=== PATIENT | male | born 1965 | race Caucasian/White ===

== ENCOUNTER 2023-03-08 09:33 | Emergency (ER) | payer OTHER, SELFPAY ==
[2023-03-08 09:38] VITALS: BP 154/78; PULSE 84; RESP 18; TEMP 36.9; O2SAT 97
--- NOTE | 2023-03-08 09:42 | ED.GENADUL_ITS ---
Discharge Plan Disposition Patient Disposition: Home Discharge Details Clinical Impression: Inguinal lymphadenopathy, Cellulitis of right foot Primary Care Provider: Unknown,Unknown ED Provider: Parag Barry Home Meds and New Rx's Prescriptions: New doxycycline hyclate 100 mg capsule 100 mg PO BID 10 Days Qty: 20 0RF Continued lisinopril 10 mg tablet 10 mg PO DAILY levothyroxine [Euthyrox] 125 mcg tablet 125 mcg PO DAILY omeprazole 20 mg tablet,delayed release (DR/EC) 20 mg PO DAILY multivitamin [Daily Multi-Vitamin] Tablet 1 tab PO DAILY Discharge Instructions Instructions: Doxycycline (By mouth), Cellulitis (ED) Additional Instructions: You were seen in the emergency department for your right foot redness, I think this is a simple infection that we can treat with the antibiotic doxycycline which was sent to your pharmacy. The nodule in your right groin is a lymph node. This may be reactive to your foot infection but you should receive follow-up with us if it does not resolve quickly with your primary care provider. Please return to the ED for any severe increase in leg pain, fever, unilateral leg swelling. Discharge Data Discharge Date/Time-TO BE ENTERED AT DEPARTURE: 03/08/23 13:25 Medical Decision Making This dictation utilizes [id number] dictation software and may contain un edited grammatical errors. 57 y/o M presents to ED today with a chief complaint of red spot on his foot, painful nodular area in his groin. Onset and characteristics include noted yesterday, no unilateral leg swelling, no fever/red streaking. Patients' medical history: noncontributory. Family and social history: noncontributory. Pertinent exam findings / vital signs include SKIN: Warm, pink, dry, intact, small 0.5cm erythematous macular area on dorsum of R foot, focal to the dorsalis pedis pulse area, no fluctuance, no lymphadenitis, no purlent drainage, no exquisite tenderness to light touch, no skin changes of calf, Honorio's negative, no unilateral leg swelling. small round mobile nodule in groin area consistent with inguinal lymphadenopathy, no testicular pain. Differential / pathologies of concern include DVT, cellulitis, lymphadenopathy, superficial thrombophlebitis, unlikely gout- no exquisite TTP with light-touch Diagnostic studies of: -CBC, CMP, CRP/ESR, D-dimer, US R LE DVT Study. -CBC benign -D-dimer neg, but patient highly concerned, US ordered for definitive ruleout -US R LE DVT Study negative, nodule is consistent with lymph node Interventions of: -outpatient Rx for antibiotics for mild cellulitis. ED Course/Assessment/Plan: 57-year-old male seen with a small red spot on his foot consistent with a mild cellulitis, has no physical exam findings consistent with DVT and ultrasound study is negative, I counseled the patient on monitoring the area, it was traced before he left, he was started on doxycycline for cellulitis, provided reassurance that his node in the groin is possibly reactive to cellulitis and consistent with just a swollen tender lymph node and not any clot pathology. Findings not consistent with gout, DVT, superficial thrombophlebitis, abscess - likely cellulitis. Disposition of Cellulitis of Right Foot, Inguinal Lymphadenopathy. Patient verbalized understanding of the plan and return to ED criteria and engaged in shared decision making. Medical Records Medical records reviewed: Yes I reviewed the patient's medical records. Imaging Data Radiologic Study: Imaging: Ultrasound Radiologist's impression: EXAM: US LOWER EXTREMITY VENOUS RT CLINICAL HISTORY: nodular swelling in groin, pain, skin changes dist TECHNIQUE: Right lower extremity venous ultrasound performed using grayscale, color-flow, and spectral Doppler analysis. COMPARISON: No exams were available for comparison FINDINGS: The right common femoral, femoral and popliteal veins demonstrate normal compressibility, augmentation, and color Doppler. The posterior tibial and peroneal veins are patent. The saphenofemoral junction is unremarkable. There is no evidence of a Snider cyst. The soft tissues are unremarkable. Sonographically benign-appearing lymph nodes are seen in the right inguinal region. The largest measures 1.5 x 0.5 x 1.0 cm. IMPRESSION: 1. No evidence of a right lower extremity DVT. 2. Sonographically benign-appearing lymph nodes in the right inguinal region. The largest measures 1.5 x 0.5 x 1.0 cm. Lab Data Lab results reviewed: Yes I reviewed the patient's lab results. Labs: Laboratory Tests Range/Units 03/08/23 10:34 WBC (4.4-10.8) 10^3/uL 9.25 RBC (4.36-5.78) 10^6/uL 4.72 Hgb (13.5-17.5) g/dL 14.5 Hct (40.0-50.0) % 41.6 MCV (80-95) fL 88 MCH (27.0-33.0) pg 30.7 MCHC (32.0-36.0) % 34.9 RDW (11.8-14.1) % 12.3 Plt Count (130-400) 10^3/uL 215 MPV (8.0-11.0) fL 9.7 Immature Gran % 0.3 Neutrophils % 57.4 Lymphocytes % 31.6 Monocytes % 8.6 Eosinophils % 1.7 Basophils % 0.4 Nucleated RBC % (0.0-0.3) % 0.0 Absolute Neutrophils (1.2-6.7) 10^3/uL 5.30 Absolute Lymphocytes (1.2-3.4) 10^3/uL 2.92 Absolute Monocytes (0.1-0.8) 10^3/uL 0.80 Absolute Eosinophils (0.0-0.7) 10^3/uL 0.16 Absolute Basophils (0.0-0.2) 10^3/uL 0.04 ESR (0-20) mm/hr 8 D-Dimer (<500) ng/mlFEU 235 Sodium (136-145) mmol/L 140 Potassium (3.5-5.1) mmol/L 3.6 Chloride (98-107) mmol/L 106 Carbon Dioxide (21.0-32.0) mmol/L 25.3 Anion Gap (3-11) mmol/L 8.7 BUN (7-18) mg/dL 15 Creatinine (0.70-1.30) mg/dL 1.0 Est GFR (CKD-EPI 2020) (mL/min/1.73m2) 88.33 Glucose (74-106) mg/dL 124 H Calcium (8.5-10.1) mg/dL 8.7 Total Bilirubin (0.2-1.0) mg/dL 0.8 AST (15-37) U/L 11 L ALT (16-63) U/L 24 Alkaline Phosphatase (46-116) U/L 34 L C-Reactive Protein (0.0-0.3) mg/dL 2.83 H Total Protein (6.4-8.2) g/dL 7.0 Albumin (3.4-5.0) g/dL 3.5 HPI General Date/Time Provider Initiated Documentation: 03/08/23 09:41 . HPI Narrative: 57 year-old male presents to ED today by POV/ambulating with his with a chief complaint of red spot noted on dorsum of foot, and a painful nodule in his R groin area with onset starting yesterday, patient is concerned for possible blood clot. Quality described as painfully tender round nodular swelling in his groin and a mild red spot on his foot, no radiation to fever, drainage of pus, red streaking up the leg, dysuria, abdominal pain, unilateral leg swelling. Severity is described as 5-6/10. Palliating factors include nothing specific attempted. Provoking factors include nothing specific. Patient not anticoagulated. Related Data Home Medications Medication Instructions Recorded Confirmed doxycycline hyclate 100 mg capsule 100 mg PO BID cellulitis 10 days 03/08/23 #20 caps levothyroxine 125 mcg tablet 125 mcg PO DAILY 03/08/23 03/08/23 (Euthyrox) lisinopril 10 mg tablet 10 mg PO DAILY 03/08/23 03/08/23 multivitamin (Daily Multi-Vitamin 1 tab PO DAILY 03/08/23 03/08/23 tablet) omeprazole 20 mg tablet,delayed 20 mg PO DAILY 03/08/23 03/08/23 release Previous Rx's Medication Instructions Recorded doxycycline hyclate 100 mg capsule 100 mg PO BID cellulitis 10 days 03/08/23 #20 caps Allergies Allergy/AdvReac Type Severity Reaction Status Date / Time penicillin V Allergy Severe Anaphylaxis Unverified 03/08/23 09:42 General Stated Complaint: Cellulitis JOSÉ MIGUEL: 3 Review of Systems All systems reviewed & are unremarkable except as noted in HPI and below PFSH All Active Problems (Updated 03/08/23 @ 13:14 by BRISA Whittaker) Cellulitis of right foot (Acute) Inguinal lymphadenopathy (Acute) Social History Smoking/Tobacco Use Status: Never Smoking risk assessment performed?: Yes Alcohol Intake: current Alcohol Intake frequency: a few times a week Drug use: Never Substance use type: does not use Housing: house Exam Narrative Exam Narrative: GENERAL APPEARANCE: Well-nourished, non-toxic, awake and alert, atraumatic, no acute distress. SKIN: Warm, pink, dry, intact, small 0.5cm erythematous macular area on dorsum of R foot, focal to the dorsalis pedis pulse area, no fluctuance, no lymphadenitis, no purlent drainage, no exquisite tenderness to light touch, no s kin changes of calf, Honorio's negative, no unilateral leg swelling HEAD: Normocephalic, atraumatic, normal hair distribution for gender/age. EYES: Pupils PERRLA, EOMs intact without nystagmus, normal conjunctiva, no exudates on lids/lashes. ENT: Nares patent, no circumoral cyanosis, no facial swelling NECK: Supple, trachea midline, painless cervical ROM. LUNGS/CHEST: Non-labored respirations, normal A/P diameter, symmetrical expansion, no chest wall deformity HEART (CV/PV): Regular rate and rhythm without murmur, no peripheral edema, no JVD. ABDOMEN: Soft, non-distended, no guarding, no tenderness. MSK: Normal ROM, no swelling/deformity to bilateral UEs or LEs, moving all extremities without weakness, no cyanosis, spine midline without tenderness, normal curvature. NEURO: Mental Status AAOx4 - alert to person, place, time, events No facial droop, no forehead involvement. Motor: No focal weakness - strength 5/5 in bilateral UEs and L Es, proximal and distal, symmetric. Sensory: sensation intact to light touch globally. Gait normal: patient ambulated without ataxia into ED room. PSYCH: euthymic, cooperative, pleasant, appropriate speech Course Vital Signs Vital signs: Vital Signs Temperature 36.9 C 03/08/23 09:38 Pulse 84 03/08/23 09:38 Respiratory Rate 18 03/08/23 09:38 Blood Pressure 154/78 H 03/08/23 09:38 Pulse Oximetry 97 03/08/23 09:38 Temperature 36.9 C 03/08/23 09:38 Temperature Source Temporal Artery Scan 03/08/23 09:38 Pulse 84 03/08/23 09:38 Respiratory Rate 18 03/08/23 09:38 Blood Pressure 154/78 H 03/08/23 09:38 Blood Pressure Position Sitting 03/08/23 09:38 Pulse Oximetry 97 03/08/23 09:38 Oxygen Delivery Method Room Air 03/08/23 09:38 Oxygen Flow Rate 0 03/08/23 09:38
[2023-03-08 10:42] LABS: ESR 8 mm/hr (0-20)
[2023-03-08 10:43] LABS: Abs Immature Grans 0.03 10^3/uL (0.0-0.06); Absolute Basophil Count 0.04 10^3/uL (0.0-0.2); Absolute Eosinophil Count 0.16 10^3/uL (0.0-0.7); Absolute Lymphocyte Count 2.92 10^3/uL (1.2-3.4); Basophils % 0.4; Eosinophils % 1.7; HCT 41.6 % (40.0-50.0); HGB 14.5 g/dL (13.5-17.5); Immature Grans % 0.3; Lymphocytes % 31.6; MCH 30.7 pg (27.0-33.0); MCHC 34.9 % (32.0-36.0); MCV 88 fL (80-95); MPV 9.7 fL (8.0-11.0); Monocytes % 8.6; Neutrophils % 57.4; Platelet Count 215 10^3/uL (130-400); RBC 4.72 10^6/uL (4.36-5.78); RDW 12.3 % (11.8-14.1); RDW-SD 39.9 fL; WBC 9.25 10^3/uL (4.4-10.8)
[2023-03-08 11:10] LABS: ALT 24 U/L (16-63); AST 11 U/L (15-37); Albumin 3.5 g/dL (3.4-5.0); Alkaline Phosphatase 34 U/L (46-116); Anion Gap 8.7 mmol/L (3-11); BUN 15 mg/dL (7-18); Bilirubin, Total 0.8 mg/dL (0.2-1.0); C-Reactive Protein 2.83 mg/dL (0.0-0.3); CO2 25.3 mmol/L (21.0-32.0); Calcium 8.7 mg/dL (8.5-10.1); Chloride 106 mmol/L (98-107); Estimated GFR 88.33 (mL/min/1.73m2); Glucose 124 mg/dL (74-106); Potassium 3.6 mmol/L (3.5-5.1); Sodium 140 mmol/L (136-145)
--- NOTE | 2023-03-08 11:15 | DI.US_ITS ---
Exam(s) US LOWER EXTREMITY VENOUS RT EXAM: US LOWER EXTREMITY VENOUS RT CLINICAL HISTORY: nodular swelling in groin, pain, skin changes dist TECHNIQUE: Right lower extremity venous ultrasound performed using grayscale, color-flow, and spectr al Doppler analysis. COMPARISON: No exams were available for comparison FINDINGS: The right common femoral, femoral and popliteal veins demonstrate normal compressibility, augmentatio n, and color Doppler. The posterior tibial and peroneal veins are patent. The saphenofemoral junctio n is unremarkable. There is no evidence of a Snider cyst. The soft tissues are unremarkable. Sonogra phically benign-appearing lymph nodes are seen in the right inguinal region. The largest measures 1. 5 x 0.5 x 1.0 cm. IMPRESSION: 1. No evidence of a right lower extremity DVT. 2. Sonographically benign-appearing lymph nodes in the right inguinal region. The largest measures 1 .5 x 0.5 x 1.0 cm. DATA REPOSITORY:
[2023-03-08 11:19] LABS: D-Dimer 235 ng/mlFEU (<500)
[2023-03-08 13:25] VITALS: BP 154/78; PULSE 84; RESP 18; TEMP 36.9; O2SAT 97
== END 2023-03-08 13:25 | disposition home or self-care (01) ==
PROVIDERS: Emergency Provider Physician Assistant
DX: R59.0 Localized enlarged lymph nodes (principal); L03.115 Cellulitis of right lower limb
CPT/HCPCS: 36415; 80053; 85652; 99283; 85025; 85379; 86140; 93971